=== PATIENT | female | born 1985 | race Caucasian/White ===

== ENCOUNTER 2018-06-19 08:57 | Emergency (ER) | payer OTHER, SELFPAY ==
[2018-06-19 08:58] VITALS: BP 157/102; PULSE 76; RESP 18; TEMP 36.6; O2SAT 100; BMI 38.0
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
[2018-06-19 10:14] VITALS: BP 108/75; PULSE 66; RESP 15; O2SAT 99
--- OUTSIDE RECORDS SUMMARY | 2018-08-23 23:26 | XMS RPT_ITS ---
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 Vitamin D 25 24.4 Hydroxy Result Comment: Classification of 25 [place] Vitamin D status: Insufficiency/Moderate Deficiency: < or = 30 ng/mL Sufficiency/Optimal Levels: 31 to 80 ng/mL Toxicity: > 100 ng/mL Test performed by chemiluminescent immunoassay. Performed By: #### CBC, CMP, LIPB, FREET3, FT4, TSH, VITD #### [facility] [employer] [address] [place], [place] [address] HEMOGLOBIN A1C Collected: 05/23/2018 Status: F Source: [place] 7:54 AM [facility] REPOSITORY TYPE CODE TESTS RESULT OUT OF REFERENCE UNITS RANGE LAB HGBA1C 4.3-5.6 % Hemoglobin A1c 5.1 Result Comment: [place] [employer] guidelines indicate that patients with HgbA1c in the range 5.7-6.4% are at increased risk for development of diabetes, and intervention by lifestyle modification may be beneficial. HgbA1c greater or equal to 6.5% is considered diagnostic of diabetes. LAB HBA0 mg/dL Est. Average Glucose 100 Result Comment: eAG: (Estimated average glucose) is a calculated value from HgbA1c and is teleservices representative of the average blood glucose level in the last 2-3 month period. Performed By: #### HBA1C #### [facility] [employer] [address] [place], [place] [address] PROGRESS Observed: 05/21/2018 Status: COMPLETED Source: [place] 9:14 PM [facility] REPOSITORY HNO ID: [id number] Author: Beni Long Service: (none) Author Type: Physician Type: Progress Notes Filed: 05/21/2018 9:20 PM Note Text: CC: Mady Tracy is a 32 year old female who presents to the office to establish care. HPI: Anxiety, long standing, worse over the last few years but especially since of her son. Has been on Paxil for the last 1-1.5 years, especially since going through a divorce from her , when she found out he was having an affair with another woman when her son was 10 days old. No SI or HI, now is in a better place since she is now moved into a new home and she now has a new stable relationship and is through the divorce. She has noticed weight gain concerns and fatigue over the last 6 months and is concerned of a possible SE from a medication contributing to this cause. No known hx of Hypothyroidism Elevated BLOOD PRESSURE, hx of elevated BLOOD PRESSURE in , no pre eclampsia or eclampsia. Has gained >20 lbs in the last 6 months and thinks this is contributing to her BLOOD PRESSURE, Admits lack of regular exercise and sometimes emotional eating, no CP or dyspnea or dizziness/LH or headaches or edema. PAST MEDICAL HISTORY Diagnosis Date - Anxiety disorder 08/14/2010 - Asthma 03/15/2010 - Breast disorder 2012 RIGHT BREAST MASS - Cyst January 2009 Near urethra that was drained. - Gestational hypertension w/o significant proteinuria in 3rd trimester 03/31/2013 - Other abnormal heart sounds Murmur PAST SURGICAL HISTORY Procedure Laterality Date - BREAST BIOPSY - LAPAROSCOPY, SURGICAL, APPENDECTOMY 10-04-11 - REMOVAL ADENOIDS,PRIMARY,<12 Y/O 01/2007 Adenoidectomy - REMOVAL OF TONSILS,<12 Y/O 01/2007 Tonsillectomy Social History: Social History Substance Use Topics - Smoking status: Never Smoker - Smokeless tobacco: Never Used - Alcohol use Yes Comment: socially, NOT WHILE FAMILY HISTORY Problem Relation Age of Onset - Hypertension Mother - Hypertension Father - Diabetes Maternal Grandmother - Diabetes Maternal Grandfather - Heart Maternal Grandfather - Arthritis Paternal Grandmother - Breast Cancer Paternal Grandmother - Diabetes Maternal Aunt - Diabetes Maternal Aunt - other (PARKINSONS) Maternal Aunt Current Outpatient prescriptions: ethynodiol diacetate-ethinyl estradiol 1 mg-35 mcg (KELNOR , ,) 1-35 mg-mcg per tablet Take 1 tablet by mouth once daily. albuterol HFA (PROAIR HFA) 90 mcg/actuation inhaler Inhale 2 Puffs as instructed every 4 hours as needed. FLUoxetine (PROZAC) 10 mg tablet Take 1 tablet by mouth once daily. Allergies: ALLERGIES Allergen Reactions - Augmentin [Amoxicil* diarrhea - Celexa [Citalopram * Other: See Comments decreased libido, anorgasmia - Z-Pack [Azithromyci* Vomiting ROS: See HPI PE: 05/21/18 1715 05/21/18 1805 BP: 136/92 140/82 Pulse: 64 Resp: 16 Temp: 37.3 ?C (99.1 ?F) TempSrc: Right Tympanic Weight: 96.6 kg (213 lb) Gen: AANDO, NAD, non-toxic appearing, Pleasant, cooperative HEENT: NT/AC, PERRLA, EOMs intact b/l, nares clear and patent b/l, pharynx without erythema, exudate or lesions. Uvula midline. EACs without erythema or debris. TMs pearly willis with intact landmarks b/l. Neck: supple, No cervical LAD, no thyromegaly, no carotid bruits CV: RRR, normal S1 and S2, no murmurs, no gallops, no rubs, Pulses 2+ and symmetric in UE and LE b/l Lungs: normal respiratory effort, CTA b/l, no wheezing or rhonchi or rales Abd: soft, overweight, NT, ND, +BS, no hepatosplenomegaly MS: FROM all 4 extremities Neuro: CN II-XII intact b/l, strength 5/5 b/l UE and LE, DTRs 2/4 UE and LE, sensation intact. Skin: warm, dry, intact, No rashes or lesions on exposed skin. ASSESSMENT/PLAN: 1. Well adult exam - ICD9: V70.0, ICD10: Z00.00 (primary diagnosis) - Encouraged monthly Breast Self Exam - Recommended calcium intake with supplements or by diet (goal of 0479-9329 mg/day - Recommended regular aerobic exercise. - Discussed need and benefit for weight loss. BMI 37.73 kg/(m2) - Check CBC with diff, CMP, TSH, HbA1C, fasting glucose and fasting lipid panel - Follow up for annual exam in one year. - COMP METABOLIC PANEL - CBC - LIPID PANEL BASIC - TSH BLD - T4 FREE/FREE THYROX - T3 FREE BLD - VITAMIN D 25 HYDROXY 2. Need for vaccination - ICD9: V05.9, ICD10: Z23 - INFLUENZA VACCINE QUADRIVALENT AGE 3 YRS PLUS + IM 3. INÉS (generalized anxiety disorder) - ICD9: 300.02, ICD10: F41.1 - concerns that Paxil is causing her SE, would recommend changing to alternative, had SE with Celexa in the past, follow up in office in 1-2 months and prn - FLUOXETINE 10 MG TABLET 4. Obesity, Class II, BMI 35-39.9 - ICD9: 278.00, ICD10: E66.9 - Lengthy discussion in office today regarding diet and exercise. Discussed use of small plate to eat meals from, drink 1 glass of water 10-15 minutes prior to eating meal, drink 8 glasses of water daily, eat fresh fruit and vegetable during meal first then lean protein such as grilled/baked chicken breast or fish, limit carbohydrate intake (less pasta, breads, rice and snack foods) as well as limiting sugars (desserts etc). Important to count / track your calories and exercise as well. Beni Long DO To ER if develops chest pain, shortness of breath, or severe worsening of symptoms. Discussed risks, benefits, alternatives, and potential side effects of medications. Patient expressed understanding and agreed with the plan. Beni Long DO [address] [place] [address] CNOV Observed: 05/21/2018 Status: COMPLETED Source: [place] 5:20 PM [facility] REPOSITORY Office Visit (FAMPWS) MADY TRACY ([id number]) 1985 F Date Time Provider Department 05/21/18 5:20 PM [facility] During your visit today, we recorded the following information about you: Temperature Pulse Respiration Blood pressure 99.1 degrees 64/minute 16/minute 140/82 Weight Last Period 96.6 kg 05/07/18 Donna Kimble LPN 05/21/2018 9:20 PM Signed 32 year old female here for INACTIVATED INFLUENZA VACCINE. 6130-8506 Season Patient is identified by name and date of : Yes [] CONTRAINDICATIONS color enhanced section Age less than 6 months? No Allergy to eggs, chicken, chicken feathers, or chicken dander? No Allergy to thimerosal (a preservative) or formaldehyde, gelatin? No History of severe reaction to any vaccine component or a previous dose of influenza vaccination? No History of Guillain-Warren Syndrome within 6 weeks after a previous influenza vaccine? No Patient is not moderately or severely ill? No Current temperature greater or equal to 100.4F? No History of Bone Marrow Transplant prior 6 months or solid organ transplant in the past 3 months ? No History of fainting after a prior injection or medical procedure? No- ? If patient has fainted in the past, the CDC recommends sitting or lying down for 15 minutes after the vaccination. [] VERIFICATION color enhanced section Was the answer Yes for any of the above contraindications? No contraindications present. Acceptable to proceed with vaccine. Patient/guardian agrees the above answers are true to the best of their knowledge? Yes Flu vaccine information sheet given? Yes See immunization activity in [facility] for details of immunizations adminstered today. Patient age: [age] year old For The 3451-0261 Flu Season 6-35 months old: Fluzone 0.25 ml - IM (Preservative Free) 3 years of age: Fluzone 0.5 ml - IM (Preservative Free) 3 years and older: Fluzone 0.5 ml- IM-(with Preservatives) 65+ years old: 2-49 years old Fluzone High-Dose 0.5 ml - IM (Preservative Free) FLUMIST- intranasal REMEMBER: If patient is less than 9 years of age and this is the first vaccine of Influenza to be received in any flu season, they should receive a second dose in one months time. Beni Long, 05/21/2018 6:00 PM Signed Vitamin D3 2,000 IU a day with food - [employer], [employer] P8 - once a day at bedtime, not with food, [place] [place] [facility], refrigerated ?Multivitamin ?B complex- if need energy, once a day morning Goal blood pressure is 110-130s/60-80s (back to goal of 120/80) Beni Long DO 05/21/2018 9:20 PM Signed CC: Mady Tracy is a 32 year old female who presents to the office to establish care. HPI: Anxiety, long standing, worse over the last few years but especially since of her son. Has been on Paxil for the last 1-1.5 years, especially since going through a divorce from her , when she found out he was having an affair with another woman when her son was 10 days old. No SI or HI, now is in a better place since she is now moved into a new home and she now has a new stable relationship and is through the divorce. She has noticed weight gain concerns and fatigue over the last 6 months and is concerned of a possible SE from a medication contributing to this cause. No known hx of Hypothyroidism Elevated BLOOD PRESSURE, hx of elevated BLOOD PRESSURE in , no pre eclampsia or eclampsia. Has gained >20 lbs in the last 6 months and thinks this is contributing to her BLOOD PRESSURE, Admits lack of regular exercise and sometimes emotional eating, no CP or dyspnea or dizziness/LH or headaches or edema. PAST MEDICAL HISTORY Diagnosis Date - Anxiety disorder 08/14/2010 - Asthma 03/15/2010 - Breast disorder 2012 RIGHT BREAST MASS - Cyst January 2009 Near urethra that was drained. - Gestational hypertension w/o significant proteinuria in 3rd trimester 03/31/2013 - Other abnormal heart sounds Murmur PAST SURGICAL HISTORY Procedure Laterality Date - BREAST BIOPSY - LAPAROSCOPY, SURGICAL, APPENDECTOMY --12 - REMOVAL ADENOIDS,PRIMARY,<12 Y/O 01/2007 Adenoidectomy - REMOVAL OF TONSILS,<12 Y/O 01/2007 Tonsillectomy Social History: Social History Substance Use Topics - Smoking status: Never Smoker - Smokeless tobacco: Never Used - Alcohol use Yes Comment: socially, NOT WHILE FAMILY HISTORY Problem Relation Age of Onset - Hypertension Mother - Hypertension Father - Diabetes Maternal Grandmother - Diabetes Maternal Grandfather - Heart Maternal Grandfather - Arthritis Paternal Grandmother - Breast Cancer Paternal Grandmother - Diabetes Maternal Aunt - Diabetes Maternal Aunt - other (PARKINSONS) Maternal Aunt Current Outpatient prescriptions: ethynodiol diacetate-ethinyl estradiol 1 mg-35 mcg (KELNOR , 28,) 1-35 mg-mcg per tablet Take 1 tablet by mouth once daily. albuterol HFA (PROAIR HFA) 90 mcg/actuation inhaler Inhale 2 Puffs as instructed every 4 hours as needed. FLUoxetine (PROZAC) 10 mg tablet Take 1 tablet by mouth once daily. Allergies: ALLERGIES Allergen Reactions - Augmentin [Amoxicil* diarrhea - Celexa [Citalopram * Other: See Comments decreased libido, anorgasmia - Z-Pack [Azithromyci* Vomiting ROS: See HPI PE: 05/21/18 1715 05/21/18 1805 BP: 136/92 140/82 Pulse: 64 Resp: 16 Temp: 37.3 ?C (99.1 ?F) TempSrc: Right Tympanic Weight: 96.6 kg (213 lb) Gen: AANDO, NAD, non-toxic appearing, Pleasant, cooperative HEENT: NT/AC, PERRLA, EOMs intact b/l, nares clear and patent b/l, pharynx without erythema, exudate or lesions. Uvula midline. EACs without erythema or debris. TMs pearly willis with intact landmarks b/l. Neck: supple, No cervical LAD, no thyromegaly, no carotid bruits CV: RRR, normal S1 and S2, no murmurs, no gallops, no rubs, Pulses 2+ and symmetric in UE and LE b/l Lungs: normal respiratory effort, CTA b/l, no wheezing or rhonchi or rales Abd: soft, overweight, NT, ND, +BS, no hepatosplenomegaly MS: FROM all 4 extremities Neuro: CN II-XII intact b/l, strength 5/5 b/l UE and LE, DTRs 2/4 UE and LE, sensation intact. Skin: warm, dry, intact, No rashes or lesions on exposed skin. ASSESSMENT/PLAN: 1. Well adult exam - ICD9: V70.0, ICD10: Z00.00 (primary diagnosis) - Encouraged monthly Breast Self Exam - Recommended calcium intake with supplements or by diet (goal of 7477-7632 mg/day - Recommended regular aerobic exercise. - Discussed need and benefit for weight loss. BMI 37.73 kg/(m2) - Check CBC with diff, CMP, TSH, HbA1C, fasting glucose and fasting lipid panel - Follow up for annual exam in one year. - COMP METABOLIC PANEL - CBC - LIPID PANEL BASIC - TSH BLD - T4 FREE/FREE THYROX - T3 FREE BLD - VITAMIN D 25 HYDROXY 2. Need for vaccination - ICD9: V05.9, ICD10: Z23 - INFLUENZA VACCINE QUADRIVALENT AGE 3 YRS PLUS + IM 3. INÉS (generalized anxiety disorder) - ICD9: 300.02, ICD10: F41.1 - concerns that Paxil is causing her SE, would recommend changing to alternative, had SE with Celexa in the past, follow up in office in 1-2 months and prn - FLUOXETINE 10 MG TABLET 4. Obesity, Class II, BMI 35-39.9 - ICD9: 278.00, ICD10: E66.9 - Lengthy discussion in office today regarding diet and exercise. Discussed use of small plate to eat meals from, drink 1 glass of water 10- 15 minutes prior to eating meal, drink 8 glasses of water daily, eat fresh fruit and vegetable during meal first then lean protein such as grilled/baked chicken breast or fish, limit carbohydrate intake (less pasta, breads, rice and snack foods) as well as limiting sugars (desserts etc). Important to count / track your calories and exercise as well. Beni Long DO To ER if develops chest pain, shortness of breath, or severe worsening of symptoms. Discussed risks, benefits, alternatives, and potential side effects of medications. Patient expressed understanding and agreed with the plan. Beni Long DO [address] [place] [address] Referring Provider: SELF [200] Allergies As of Date: 05/21/2018 Noted Allergy Reaction AUGMENTIN (AMOXICILLIN-POT CLAVUL*04/23/2005 Comments: diarrhea CELEXA (CITALOPRAM HYDROBROMIDE) 09/04/2010 14 - Other: See Comments Comments: decreased libido, anorgasmia Z-PACK (AZITHROMYCIN) 10/03/2006 11 - Vomiting Date Reviewed: 05/21/2018 Reviewed by: Donna Kimble LPN - Fully Assessed Reason for Visit: Establish Care [42] Imm/Inj [58] Cmt: Flu Vaccine Reason For Visit History Recorded Primary Visit Diagnosis:Well adult exam [Z00.00] Other Visit Diagnoses:Need for vaccination [Z23] INÉS (generalized anxiety disorder) [F41.1] Obesity, Class II, BMI 35-39.9 [E66.9] Fatigue, unspecified type [R53.83] Order(s):INFLUENZA VACCINE QUADRIVALENT AGE 3 YRS PLUS + IM [[id number]] Order #: [id number] COMP METABOLIC PANEL [SQCMP] Order #: [id number] FUTURE CBC [SQCBC] Order #: [id number] FUTURE LIPID PANEL BASIC [SQLIPB] Order #: [id number] FUTURE TSH BLD [SQTSH] Order #: [id number] FUTURE T4 FREE/FREE THYROX [SQFT4] Order #: [id number] FUTURE T3 FREE BLD [SQFREET3] Order #: [id number] FUTURE VITAMIN D 25 HYDROXY [SQVITD] Order #: [id number] FUTURE FLUoxetine (PROZAC) 10 mg tabletTake 1 tablet by mouth once daily.Disp: 30 tabletRfl: 3 Prescriptions as of 05/21/2018 Sig: ETHYNODIOL DIAC-ETH ESTRADIOL* Take 1 tablet by mouth once d* FLUOXETINE 10 MG TABLET Take 1 tablet by mouth once d* ALBUTEROL SULFATE HFA 90 MCG/* Inhale 2 Puffs as instructed * Problem List As Of Date 05/21/2018 Noted Resolved Acute pharyngitis [J02.9] INVALID FOR*01/12/2016 DYSMETABOLIC SYNDROME X [E88.81] INVALID FOR* Other acne [L70.8] INVALID FOR*01/12/2016 Scar condition and fibrosis of skin [L90.5] INVALID FOR*12/12/2012 Esophageal reflux [K21.9] INVALID FOR*12/12/2012 Contact dermatitis and other eczema, due to uns*INVALID FOR*12/12/2012 XEROSIS///SEBACEOUS GLAND DIS NEC [L73.8] INVALID FOR*12/12/2012 Other seborrheic keratosis [L82.1] INVALID FOR*12/12/2012 Dyshidrosis [L30.1] INVALID FOR*01/12/2016 Asthma [J45.909] INVALID FOR*10/03/2015 More... Anxiety disorder [F41.9] INVALID FOR*10/03/2015 More... Chronic appendicitis [K36] INVALID FOR*12/12/2012 History of breast biopsy [Z98.890] INVALID FOR*05/29/2013 More... Heart murmur [R01.1] INVALID FOR*10/03/2015 More... Patient requested diagnostic testing [Z01.89] INVALID FOR*12/12/2012 More... Immunization due [Z23] INVALID FOR*03/11/2013 More... Supervision of normal first [Z34.00] INVALID FOR*05/29/2013 Gestational hypertension w/o significant protei*INVALID FOR*05/29/2013 History of asthma [Z87.09] INVALID FOR* More... History of heart murmur in childhood [Z86.79] INVALID FOR* More... History of depression [Z86.59] INVALID FOR* More... History of gestational hypertension [Z87.59] INVALID FOR*06/28/2016 More... History of maternal third degree perineal lacer*INVALID FOR*06/28/2016 More... Obesity, Class II, BMI 35-39.9 [E66.9] INVALID FOR* INÉS (generalized anxiety disorder) [F41.1] INVALID FOR* Well adult exam [Z00.00] INVALID FOR* Other instructions from your clinician: Vitamin D3 2,000 IU a day with food - [employer], [employer] P[employer] - once a day at bedtime, not with food, [employer] [facility], refrigerated ?Multivitamin ?B complex- if need energy, once a day morning Goal blood pressure is 110-130s/60-80s (back to goal of 120/80) Prescriptions ordered this encounter Disp Refills Start End FLUOXETINE 10 MG TABLET 30 t* 3 05/21/2018 Route: ORAL Sig: Take 1 tablet by mouth once daily. Medications Discontinued During This Encounter PARoxetine (PAXIL) 10 mg tablet 90 t* 3 11/04/2017 05/21/2018 Route: ORAL Sig: Take 1 tablet by mouth once daily. Disc: Reason for discontinue is not on file. Follow-up and Disposition History Recorded Encounter Status:Closed by BENI LONG DO on 05/21/18 PROGRESS Observed: 05/21/2018 Status: COMPLETED Source: [place] 5:18 PM [facility] REPOSITORY HNO ID: [id number] Author: Donna Kimble LPN Service: (none) Author Type: (none) Type: Progress Notes Filed: 05/21/2018 9:20 PM Note Text: 32 year old female here for INACTIVATED INFLUENZA VACCINE. 2116-4306 Season Patient is identified by name and date of : Yes [] CONTRAINDICATIONS color enhanced section Age less than 6 months? No Allergy to eggs, chicken, chicken feathers, or chicken dander? No Allergy to thimerosal (a preservative) or formaldehyde, gelatin? No History of severe reaction to any vaccine component or a previous dose of influenza vaccination? No History of Guillain-Warren Syndrome within 6 weeks after a previous influenza vaccine? No Patient is not moderately or severely ill? No Current temperature greater or equal to 100.4F? No History of Bone Marrow Transplant prior 6 months or solid organ transplant in the past 3 months ? No History of fainting after a prior injection or medical procedure? No- ? If patient has fainted in the past, the CDC recommends sitting or lying down for 15 minutes after the vaccination. [] VERIFICATION color enhanced section Was the answer Yes for any of the above contraindications? No contraindications present. Acceptable to proceed with vaccine. Patient/guardian agrees the above answers are true to the best of their knowledge? Yes Flu vaccine information sheet given? Yes See immunization activity in [facility] for details of immunizations adminstered today. Patient age: [age] year old For The 8216-5860 Flu Season 6-35 months old: Fluzone 0.25 ml - IM (Preservative Free) 3 years of age: Fluzone 0.5 ml - IM (Preservative Free) 3 years and older: Fluzone 0.5 ml- IM-(with Preservatives) 65+ years old: 2-49 years old Fluzone High-Dose 0.5 ml - IM (Preservative Free) FLUMIST- intranasal REMEMBER: If patient is less than 9 years of age and this is the first vaccine of Influenza to be received in any flu season, they should receive a second dose in one months time. CNPTOUTREAALEXANDER Observed: 05/06/2018 Status: COMPLETED Source: [place] 12:00 AM [facility] REPOSITORY Patient Outreach (INT[facility]) MADY TRACY ([id number]) 1985 F Date Time Provider Department 05/06/18 [facility] LIU [facility] During your visit today, we recorded the following information about you: Allergies As of Date: 05/06/2018 Noted Allergy Reaction AUGMENTIN (AMOXICILLIN-POT CLAVUL*04/23/2005 Comments: diarrhea CELEXA (CITALOPRAM HYDROBROMIDE) 09/04/2010 14 - Other: See Comments Comments: decreased libido, anorgasmia Z-PACK (AZITHROMYCIN) 10/03/2006 11 - Vomiting Date Reviewed: 11/04/2017 Reviewed by: Kaci Guerrero Ma - Fully Assessed Visit Diagnosis:Medication management [Z79.899] Order(s):HGB A1C [[id number]] Order #: [id number] FUTURE Prescriptions as of 05/06/2018 Sig: ALBUTEROL SULFATE HFA 90 MCG/* Inhale 2 Puffs as instructed * ETHYNODIOL DIAC-ETH ESTRADIOL* Take 1 tablet by mouth once d* X PAROXETINE 10 MG TABLET Take 1 tablet by mouth once d* Problem List As Of Date 05/06/2018 Noted Resolved Acute pharyngitis [J02.9] INVALID FOR*01/12/2016 DYSMETABOLIC SYNDROME X [E88.81] INVALID FOR* Other acne [L70.8] INVALID FOR*01/12/2016 Scar condition and fibrosis of skin [L90.5] INVALID FOR*12/12/2012 Esophageal reflux [K21.9] INVALID FOR*12/12/2012 Contact dermatitis and other eczema, due to uns*INVALID FOR*12/12/2012 XEROSIS///SEBACEOUS GLAND DIS NEC [L73.8] INVALID FOR*12/12/2012 Other seborrheic keratosis [L82.1] INVALID FOR*12/12/2012 Dyshidrosis [L30.1] INVALID FOR*01/12/2016 Asthma [J45.909] INVALID FOR*10/03/2015 More... Anxiety disorder [F41.9] INVALID FOR*10/03/2015 More... Chronic appendicitis [K36] INVALID FOR*12/12/2012 History of breast biopsy [Z98.890] INVALID FOR*05/29/2013 More... Heart murmur [R01.1] INVALID FOR*10/03/2015 More... Patient requested diagnostic testing [Z01.89] INVALID FOR*12/12/2012 More... Immunization due [Z23] INVALID FOR*03/11/2013 More... Supervision of normal first [Z34.00] INVALID FOR*05/29/2013 Gestational hypertension w/o significant protei*INVALID FOR*05/29/2013 History of asthma [Z87.09] INVALID FOR* More... History of heart murmur in childhood [Z86.79] INVALID FOR* More... History of depression [Z86.59] INVALID FOR* More... History of gestational hypertension [Z87.59] INVALID FOR*06/28/2016 More... History of maternal third degree perineal lacer*INVALID FOR*06/28/2016 More... Encounter Status:Closed by Sensser Moxe HealthYESSI on 05/29/18 PROGRESS Observed: 11/11/2017 Status: COMPLETED Source: [place] 8:26 AM [facility] [place] REPOSITORY HNO ID: [id number] Author: Bertha Fine Psr Service: (none) Author Type: (none) Type: Progress Notes Filed: 11/11/2017 8:26 AM Note Text: pap logged, letter sent. Bertha Fine Psr PROGRESS Observed: 11/08/2017 Status: COMPLETED Source: [place] 9:39 AM [facility] REPOSITORY HNO ID: [id number] Author: Bertha Fine Psr Service: (none) Author Type: (none) Type: Progress Notes Filed: 11/08/2017 9:39 AM Note Text: pap logged, letter sent. Bertha Fine Psr HPV W/GENOTYPE Collected: 11/04/2017 Status: F Source: [place] 9:33 AM [facility] REPOSITORY TYPE CODE TESTS RESULT OUT OF REFERENCE UNITS RANGE LAB HPVT16 HPV HighRisk Negative for Type 16 HPV DNA high risk type 16 by PCR. LAB HPVT18 HPV HighRisk Negative for Type 18 HPV DNA high risk type 18 by PCR. LAB HPVHRO HPV HighRisk Negative for Other HPV DNA high risk types: 31,33,35,39,45 ,51,52,56,58,5 9,66,68 by PCR. Result Comment: This test was developed and its performance characteristics determined by [facility]'s [facility] [place] ([facility]). It has not been cleared or approved by the FDA. [facility] is regulated under CLIA as qualified to perform high-complexity testing. This test is used for clinical purposes. It should not be regarded as inv estigational or for research. Performed By: #### HPVHRR #### [facility] [address], [place] [address] CYTOLOGY Observed: 11/04/2017 Status: C Source: [place] 9:33 AM [facility] REPOSITORY ADDITIONAL PROCEDURES PRESENT Specimen originated from [facility] Specimen #: [id number] Submitting Physician: BJ REARDON M.D. ([id number]) SPECIMEN SUBMITTED A: CERVICAL, SCREENING, FLUID FINAL DIAGNOSIS A. CERVICAL, SCREENING, FLUID Satisfactory for interpretation. No endocervical component. Negative for intraepithelial lesion or malignancy. This specimen has been analyzed by the ThinPrep Imaging System, an automated imaging and review system, which assists the laboratory in evaluating cells on ThinPrep Pap tests. Following automated imaging, selected pérez from every slide are reviewed by a regional sales coordinator. SARA Fung(ASCP) (Electronic Signature) ADDITIONAL PROCEDURE(S) HUMAN PAPILLOMA VIRUS Date Ordered: 11/05/2017 Date Reported: 11/06/2017 Procedure Results and Interpretation Negative for HPV DNA high risk type 16 by PCR. Negative for HPV DNA high risk type 18 by PCR. Negative for HPV DNA high risk types: 31,33,35,39,45,51,52,56,58,59,66,68 by PCR. This test was developed and its performance characteristics determined by [facility]'s [facility] [place] ([facility]). It has not been cleared or approved by the FDA. -[facility] is regulated under CLIA as qualified to perform high-complexity testing. This test is used for clinical purposes. It should not be regarded as investigational or for research. CLINICAL DATA ROUTINE EXAM, HPV Testing: Yes, automatic HPV patients over 30 Date of Last Menstrual Period: 10/23/2017 STAINS A: CERVICAL, SCREENING, FLUID THIN PREP NETWORK PROGRAMMER Sylvie Sorensen M.D., Social Insurance Adviser Date of Report: 11/07/2017 Date of Procedure: 11/04/2017 Date of Receipt: 11/05/2017 Submitted by: BJ REARDON M.D. ([id number]) Location: [facility] Diagnostic interpretation performed at [facility], [address] [facility] [address]. The Pap Smear is a screening test for cervical cancer. False negative results occur with all screening tests, emphasizing the need for rescreening at recommended intervals, and clinical correlation. PROGRESS Observed: 11/04/2017 Status: COMPLETED Source: [place] 9:20 AM [facility] RE[facility] HNO ID: [id number] Author: Bj Reardon Service: (none) Author Type: Physician Type: Progress Notes Filed: 11/04/2017 9:35 AM Note Text: Mady Tracy is a 32 year old who presents for her annual gynecologic exam without complaints. Menses: cycles every 28 days and 2-3 days of light flow. Contraception: oral contraceptives HPV vaccine: No Last Pap: 2012 normal HPV: N/A History of abnormal pap: No Last mammogram: never Sexually active: Yes Obstetric History T2 L2 SAB0 TAB0 Ectopic0 Multiple0 Live Births2 PAST MEDICAL HISTORY Diagnosis Date - Anxiety disorder 08/14/2010 - Asthma 03/15/2010 - Breast disorder 2012 RIGHT BREAST MASS - Cyst January 2009 Near urethra that was drained. - Gestational hypertension w/o significant proteinuria in 3rd trimester 03/31/2013 - Other abnormal heart sounds Murmur PAST SURGICAL HISTORY Procedure Laterality Date - BREAST BIOPSY - LAPAROSCOPY, SURGICAL, APPENDECTOMY 10-04-11 - REMOVAL ADENOIDS,PRIMARY,<12 Y/O 01/2007 Adenoidectomy - REMOVAL OF TONSILS,<12 Y/O 01/2007 Tonsillectomy FAMILY HISTORY Problem Relation Age of Onset - Hypertension Mother - Hypertension Father - Diabetes Maternal Grandmother - Diabetes Maternal Grandfather - Heart Maternal Grandfather - Arthritis Paternal Grandmother - Breast Cancer Paternal Grandmother - Diabetes Maternal Aunt - Diabetes Maternal Aunt - PARKINSONS [OTHER] Maternal Aunt SOCIAL HISTORY Social History Substance Use Topics - Smoking status: Never Smoker - Smokeless tobacco: Never Used - Alcohol use Yes Comment: socially, NOT WHILE REVIEW OF SYSTEMS Abdomen: No abdominal pain, nausea, vomiting, diarrhea, or constipation. No bloating, early satiety, indigestion, or increased flatulence. Bladder: No dysuria, gross hematuria, urinary frequency, urinary urgency, or incontinence. Breast: No breast lumps, nipple d/c, overlying skin changes, redness or skin retraction. Allergies and current medication updated:Yes EXAM: Ht 5' 3 (1.60m) Wt 202 lb (91.6kg) LMP 10/23/2017 BMI 35.79 kg/(m2). GENERAL: pleasant, female in no apparent distress HEENT: Normocephalic, atraumatic, mucus membranes moist and no lesions NECK: Supple, full range of motion, no adenopathy and thyroid normal DERMATOLOGY: Normal, without lesions, non-icteric and non-hirsute BREAST: soft, non-tender, symmetric, no dominant mass, normal nipple-areolar complex, no lymphadenopathy, no nipple discharge and dense breasts CHEST: Normal inspiratory effort ABDOMEN: soft, non-tender and no masses PELVIC: external genitalia normal, normal Bartholin's glands, urethra, Arbuckle's glands, no vulvar lesions, no cervical lesions, good vaginal support, physiologic discharge present, normal appearing perineal body and perianal region BIMANUAL: uterus normal size, shape and consistency, no adnexal masses and non-tender RECTOVAGINAL: deferred. NEURO: alert and oriented x3,exam grossly non-focal EXTREMITIES: normal ASSESSMENT/PLAN: 1) Health maintenance: Pap done with HPV. 2) Contraception: oral contraceptives . Contraceptive options reviewed and information provided. 3) STD screening: Declined STD check. 4) Follow up one year or sooner as needed Bj Reardon MD CNOV Observed: 11/04/2017 Status: COMPLETED Source: [place] 9:00 AM [facility] REPOSITORY Office Visit (WOOB) MADY TRACY ([id number]) 1985 F Date Time Provider Department 11/04/17 9:00 AM BJ REARDON During your visit today, we recorded the following information about you: Blood pressure Weight Height Last Period 132/84 91.6 kg 1.6 m 10/23/17 Bj Reardon MD 11/04/2017 9:35 AM Signed Mady Tracy is a 32 year old who presents for her annual gynecologic exam without complaints. Menses: cycles every 28 days and 2-3 days of light flow. Contraception: oral contraceptives HPV vaccine: No Last Pap: 2012 normal HPV: N/A History of abnormal pap: No Last mammogram: never Sexually active: Yes Obstetric History T2 L2 SAB0 TAB0 Ectopic0 Multiple0 Live Births2 PAST MEDICAL HISTORY Diagnosis Date - Anxiety disorder 08/14/2010 - Asthma 03/15/2010 - Breast disorder 2012 RIGHT BREAST MASS - Cyst January 2009 Near urethra that was drained. - Gestational hypertension w/o significant proteinuria in 3rd trimester 03/31/2013 - Other abnormal heart sounds Murmur PAST SURGICAL HISTORY Procedure Laterality Date - BREAST BIOPSY - LAPAROSCOPY, SURGICAL, APPENDECTOMY 10-04-11 - REMOVAL ADENOIDS,PRIMARY,<12 Y/O 01/2007 Adenoidectomy - REMOVAL OF TONSILS,<12 Y/O 01/2007 Tonsillectomy FAMILY HISTORY Problem Relation Age of Onset - Hypertension Mother - Hypertension Father - Diabetes Maternal Grandmother - Diabetes Maternal Grandfather - Heart Maternal Grandfather - Arthritis Paternal Grandmother - Breast Cancer Paternal Grandmother - Diabetes Maternal Aunt - Diabetes Maternal Aunt - PARKINSONS [OTHER] Maternal Aunt SOCIAL HISTORY Social History Substance Use Topics - Smoking status: Never Smoker - Smokeless tobacco: Never Used - Alcohol use Yes Comment: socially, NOT WHILE REVIEW OF SYSTEMS Abdomen: No abdominal pain, nausea, vomiting, diarrhea, or constipation. No bloating, early satiety, indigestion, or increased flatulence. Bladder: No dysuria, gross hematuria, urinary frequency, urinary urgency, or incontinence. Breast: No breast lumps, nipple d/c, overlying skin changes, redness or skin retraction. Allergies and current medication updated:Yes EXAM: Ht 5' 3 (1.60m) Wt 202 lb (91.6kg) LMP 10/23/2017 BMI 35.79 kg/(m2). GENERAL: pleasant, female in no apparent distress HEENT: Normocephalic, atraumatic, mucus membranes moist and no lesions NECK: Supple, full range of motion, no adenopathy and thyroid normal DERMATOLOGY: Normal, without lesions, non-icteric and non-hirsute BREAST: soft, non-tender, symmetric, no dominant mass, normal nipple-areolar complex, no lymphadenopathy, no nipple discharge and dense breasts CHEST: Normal inspiratory effort ABDOMEN: soft, non-tender and no masses PELVIC: external genitalia normal, normal Bartholin's glands, urethra, Arbuckle's glands, no vulvar lesions, no cervical lesions, good vaginal support, physiologic discharge present, normal appearing perineal body and perianal region BIMANUAL: uterus normal size, shape and consistency, no adnexal masses and non-tender RECTOVAGINAL: deferred. NEURO: alert and oriented x3,exam grossly non-focal EXTREMITIES: normal ASSESSMENT/PLAN: 1) Health maintenance: Pap done with HPV. 2) Contraception: oral contraceptives . Contraceptive options reviewed and information provided. 3) STD screening: Declined STD check. 4) Follow up one year or sooner as needed MD Bertha Vargas Psr 11/08/2017 9:39 AM Signed pap logged, letter sent. Bertha Fine Psr Bertha Fine Psr 11/11/2017 8:26 AM Signed pap logged, letter sent. Bertha Fine Psr Referring Provider: SELF [[id number]] Allergies As of Date: 11/04/2017 Noted Allergy Reaction AUGMENTIN (AMOXICILLIN-POT CLAVUL*04/23/2005 Comments: diarrhea CELEXA (CITALOPRAM HYDROBROMIDE) 09/04/2010 14 - Other: See Comments Comments: decreased libido, anorgasmia Z-PACK (AZITHROMYCIN) 10/03/2006 11 - Vomiting Date Reviewed: 11/04/2017 Reviewed by: Kaci Guerrero Ma - Fully Assessed Reason for Visit: Yearly Exam [187] Visit Diagnoses:History of depression [Z86.59] Encounter for gynecological examination (general) (routine) without abnormal findings [Z01.419] Screening for cervical cancer [Z12.4] Encounter for screening for human papillomavirus (HPV) [Z11.51] Order(s):PAP FLUID CERVICAL SCREENING [[id number]] Order #: [id number]. #:[id number] ethynodiol diacetate-ethinyl estradiol 1 mg-35 mcg (KELNOR 1/35, 28,) 1-35 mg-mcg per tabletTake 1 tablet by mouth once daily.Disp: 3 PackageRfl: 3 PARoxetine (PAXIL) 10 mg tabletTake 1 tablet by mouth once daily.Disp: 90 tabletRfl: 3 HPV W/GENOTYPE [SQHPVHRR] Order #: [id number]. #:[id number] Prescriptions as of 11/04/2017 Sig: ETHYNODIOL DIAC-ETH ESTRADIOL* Take 1 tablet by mouth once d* PAROXETINE 10 MG TABLET Take 1 tablet by mouth once d* ALBUTEROL SULFATE HFA 90 MCG/* Inhale 2 Puffs as instructed * Patient not taking: Reported on 11/04/2017 Problem List As Of Date 11/04/2017 Noted Resolved Acute pharyngitis [J02.9] INVALID FOR*01/12/2016 DYSMETABOLIC SYNDROME X [E88.81] INVALID FOR* Other acne [L70.8] INVALID FOR*01/12/2016 Scar condition and fibrosis of skin [L90.5] INVALID FOR*12/12/2012 Esophageal reflux [K21.9] INVALID FOR*12/12/2012 Contact dermatitis and other eczema, due to uns*INVALID FOR*12/12/2012 XEROSIS///SEBACEOUS GLAND DIS NEC [L73.8] INVALID FOR*12/12/2012 Other seborrheic keratosis [L82.1] INVALID FOR*12/12/2012 Dyshidrosis [L30.1] INVALID FOR*01/12/2016 Asthma [J45.909] INVALID FOR*10/03/2015 More... Anxiety disorder [F41.9] INVALID FOR*10/03/2015 More... Chronic appendicitis [K36] INVALID FOR*12/12/2012 History of breast biopsy [Z98.890] INVALID FOR*05/29/2013 More... Heart murmur [R01.1] INVALID FOR*10/03/2015 More... Patient requested diagnostic testing [Z01.89] INVALID FOR*12/12/2012 More... Immunization due [Z23] INVALID FOR*03/11/2013 More... Supervision of normal first [Z34.00] INVALID FOR*05/29/2013 Gestational hypertension w/o significant protei*INVALID FOR*05/29/2013 History of asthma [Z87.09] INVALID FOR* More... History of heart murmur in childhood [Z86.79] INVALID FOR* More... History of depression [Z86.59] INVALID FOR* More... History of gestational hypertension [Z87.59] INVALID FOR*06/28/2016 More... History of maternal third degree perineal lacer*INVALID FOR*06/28/2016 More... Prescriptions ordered this encounter Disp Refills Start End ETHYNODIOL DIAC-ETH ESTRADIOL 1 MG-3* 3 Pa* 3 11/04/2017 Route: ORAL Sig: Take 1 tablet by mouth once daily. PAROXETINE 10 MG TABLET 90 t* 3 11/04/2017 Route: ORAL Sig: Take 1 tablet by mouth once daily. Medications Discontinued During This Encounter ethynodiol diacetate-ethinyl estradi* 3 Pa* 3 05/28/2017 11/04/2017 Route: ORAL Sig: Take 1 tablet by mouth once daily. Disc: Reason for discontinue is not on file. PARoxetine (PAXIL) 10 mg tablet 90 t* 3 05/28/2017 11/04/2017 Route: ORAL Sig: Take 1 tablet by mouth once daily. Disc: Reason for discontinue is not on file. Disposition: Return in 1 year (on 11/04/2018) for Annual Exam. Follow-up and Disposition History Recorded Letter Text Bj Reardon M.D. [facility] [address] [place] [id number] [facility] [address] 11/08/2017 [facility]: [id number] Dear Mady, We are pleased to inform you that your recent Pap Test was within normal limits. Because Pap tests are so effective in the early detection of cervical cancer, you are encouraged to continue having the test at regular intervals. You will be due for a 1 year Gynecological Exam after this date 11/04/2018. If you have any questions regarding the above information, do not hesitate to call our office at between the hours of 8:00 a.m. and 5:00 p.m. Sincerely, Bj Reardon M.D. Letter Text Bj Reardon M.D. [facility] [address] [place], [place] [address] [address] [place] [address] 11/11/2017 [facility]: [id number] Dear Mady, We are pleased to inform you that your recent Pap Test was within normal limits. Because Pap tests are so effective in the early detection of cervical cancer, you are encouraged to continue having the test at regular intervals. You will be due for a 1 year Gynecological Exam after this date 11/04/2018. If you have any questions regarding the above information, do not hesitate to call our office at between the hours of 8:00 a.m. and 5:00 p.m. Sincerely, Bj Reardon M.D. Encounter Status:Closed by BJ REARDON MD on 11/04/17 PROGRESS Observed: 09/13/2017 Status: COMPLETED Source: [place] 5:53 PM [facility] [place] REPOSITORY HNO ID: [id number] Author: Mayra Chester (Busetr Purcell Service: (none) Author Type: Nurse Practitioner Type: Progress Notes Filed: 09/13/2017 6:06 PM Note Text: Subjective HPI Patient presents with: Cough and Chest Congestion x 5 days Hx of asthma and bronchitis. Mucinex otc with minimal relief. Review of Systems Constitutional: Positive for chills, fever (started today) and malaise/fatigue. HENT: Positive for congestion. Negative for ear pain and sore throat. Eyes: Negative for discharge and redness. Respiratory: Positive for cough (chest tightness). Negative for hemoptysis, sputum production, shortness of breath and wheezing. Gastrointestinal: Negative for abdominal pain, diarrhea, nausea and vomiting. Skin: Negative for rash. Neurological: Negative for headaches. PAST MEDICAL HISTORY Diagnosis Date - Anxiety disorder 08/14/2010 - Asthma 03/15/2010 - Breast disorder 2012 RIGHT BREAST MASS - Cyst January 2009 Near urethra that was drained. - Gestational hypertension w/o significant proteinuria in 3rd trimester 03/31/2013 - Other abnormal heart sounds Murmur PAST SURGICAL HISTORY Procedure Laterality Date - BREAST BIOPSY - LAPAROSCOPY, SURGICAL, APPENDECTOMY 10-03-12 - REMOVAL ADENOIDS,PRIMARY,<12 Y/O 01/2007 Adenoidectomy - REMOVAL OF TONSILS,<12 Y/O 01/2007 Tonsillectomy ALLERGIES Augmentin [Amoxicillin-Pot Clavulanate]; Celexa [Citalopram Hydrobromide]; Z-Pack [Azithromycin] MEDICATIONS PARoxetine (PAXIL) 10 mg tablet Take 1 tablet by mouth once daily. ethynodiol diacetate-ethinyl estradiol 1 mg-35 mcg (KELNOR , 28,) 1-35 mg-mcg per tablet Take 1 tablet by mouth once daily. FAMILY HISTORY Problem Relation Age of Onset - Hypertension Mother - Hypertension Father - Diabetes Maternal Grandmother - Diabetes Maternal Grandfather - Heart Maternal Grandfather - Arthritis Paternal Grandmother - Breast Cancer Paternal Grandmother - Diabetes Maternal Aunt - Diabetes Maternal Aunt - PARKINSONS [OTHER] Maternal Aunt Social History Substance Use Topics - Smoking status: Never Smoker - Smokeless tobacco: Never Used - Alcohol use Yes Comment: socially, NOT WHILE Objective Physical Exam Constitutional: She is well-developed, well-nourished, and in no distress. HENT: Head: Normocephalic. Right Ear: Tympanic membrane, external ear and ear canal normal. Left Ear: Tympanic membrane, external ear and ear canal normal. Nose: Rhinorrhea present. Right sinus exhibits no maxillary sinus tenderness and no frontal sinus tenderness. Left sinus exhibits no maxillary sinus tenderness and no frontal sinus tenderness. Mouth/Throat: Posterior oropharyngeal erythema (PND) present. Eyes: Conjunctivae are normal. Neck: Normal range of motion. Neck supple. Cardiovascular: Normal rate, regular rhythm and normal heart sounds. Pulmonary/Chest: Effort normal. No respiratory distress. She has rhonchi (right lower posterior lobe). She has no rales. She exhibits no tenderness. Abdominal: Soft. She exhibits no distension. There is no tenderness. Lymphadenopathy: She has no cervical adenopathy. Skin: Skin is warm and dry. No rash noted. Nursing note and vitals reviewed. ASSESSMENT/PLAN: 1. Asthmatic bronchitis with acute exacerbation, unspecified asthma severity, unspecified whether persistent - ICD9: 493.92, ICD10: J45.901 - Amoxil - Bromfed - Exacerbation treatment of Prednisone burst- see orders - Avoidance of triggers recommended - Follow up in 3-5 days or sooner with PCP if symptoms are not improving or worsening. Prescription instructions reviewed with patient as applicable. Patient advised if symptoms do not improve or if symptoms worsen sooner, to contact their primary care physician. Potential red flag symptoms discussed with the patient. Reviewed appropriate action plan to take if red flag symptoms occur. Patient agreeable to treatment plan. Mayra Purcell APRN.JANELLE CNOV Observed: 09/13/2017 Status: COMPLETED Source: [place] 5:30 PM [facility] REPOSITORY Office Visit (WSTR) MADY TRACY ([id number]) 1985 F Date Time Provider Department 09/13/17 5:30 PM MAYRA PURCELL (VETERINARY MILK SPECIALIST) [place] During your visit today, we recorded the following information about you: Temperature Pulse Respiration Blood pressure 99.6 degrees 95/minute 18/minute 130/80 Weight 91.6 kg Mayra Purcell APRN.CNP 09/13/2017 6:06 PM Signed Subjective HPI Patient presents with: Cough and Chest Congestion x 5 days Hx of asthma and bronchitis. Mucinex otc with minimal relief. Review of Systems Constitutional: Positive for chills, fever (started today) and malaise/fatigue. HENT: Positive for congestion. Negative for ear pain and sore throat. Eyes: Negative for discharge and redness. Respiratory: Positive for cough (chest tightness). Negative for hemoptysis, sputum production, shortness of breath and wheezing. Gastrointestinal: Negative for abdominal pain, diarrhea, nausea and vomiting. Skin: Negative for rash. Neurological: Negative for headaches. PAST MEDICAL HISTORY Diagnosis Date - Anxiety disorder 08/14/2010 - Asthma 03/15/2010 - Breast disorder 2012 RIGHT BREAST MASS - Cyst January 2009 Near urethra that was drained. - Gestational hypertension w/o significant proteinuria in 3rd trimester 03/31/2013 - Other abnormal heart sounds Murmur PAST SURGICAL HISTORY Procedure Laterality Date - BREAST BIOPSY - LAPAROSCOPY, SURGICAL, APPENDECTOMY 5-3-12 - REMOVAL ADENOIDS,PRIMARY,ANDlt;12 Y/O 01/2007 Adenoidectomy - REMOVAL OF TONSILS,ANDlt;13 Y/O 01/2007 Tonsillectomy ALLERGIES Augmentin [Amoxicillin-Pot Clavulanate]; Celexa [Citalopram Hydrobromide]; Z-Pack [Azithromycin] MEDICATIONS PARoxetine (PAXIL) 10 mg tablet Take 1 tablet by mouth once daily. ethynodiol diacetate-ethinyl estradiol 1 mg-35 mcg (KELNOR , ,) 1-35 mg-mcg per tablet Take 1 tablet by mouth once daily. FAMILY HISTORY Problem Relation Age of Onset - Hypertension Mother - Hypertension Father - Diabetes Maternal Grandmother - Diabetes Maternal Grandfather - Heart Maternal Grandfather - Arthritis Paternal Grandmother - Breast Cancer Paternal Grandmother - Diabetes Maternal Aunt - Diabetes Maternal Aunt - PARKINSONS [OTHER] Maternal Aunt Social History Substance Use Topics - Smoking status: Never Smoker - Smokeless tobacco: Never Used - Alcohol use Yes Comment: socially, NOT WHILE Objective Physical Exam Constitutional: She is well-developed, well-nourished, and in no distress. HENT: Head: Normocephalic. Right Ear: Tympanic membrane, external ear and ear canal normal. Left Ear: Tympanic membrane, external ear and ear canal normal. Nose: Rhinorrhea present. Right sinus exhibits no maxillary sinus tenderness and no frontal sinus tenderness. Left sinus exhibits no maxillary sinus tenderness and no frontal sinus tenderness. Mouth/Throat: Posterior oropharyngeal erythema (PND) present. Eyes: Conjunctivae are normal. Neck: Normal range of motion. Neck supple. Cardiovascular: Normal rate, regular rhythm and normal heart sounds. Pulmonary/Chest: Effort normal. No respiratory distress. She has rhonchi (right lower posterior lobe). She has no rales. She exhibits no tenderness. Abdominal: Soft. She exhibits no distension. There is no tenderness. Lymphadenopathy: She has no cervical adenopathy. Skin: Skin is warm and dry. No rash noted. Nursing note and vitals reviewed. ASSESSMENT/PLAN: 1. Asthmatic bronchitis with acute exacerbation, unspecified asthma severity, unspecified whether persistent - ICD9: 493.92, ICD10: J45.901 - Amoxil - Bromfed - Exacerbation treatment of Prednisone burst- see orders - Avoidance of triggers recommended - Follow up in 3-5 days or sooner with PCP if symptoms are not improving or worsening. Prescription instructions reviewed with patient as applicable. Patient advised if symptoms do not improve or if symptoms worsen sooner, to contact their primary care physician. Potential red flag symptoms discussed with the patient. Reviewed appropriate action plan to take if red flag symptoms occur. Patient agreeable to treatment plan. Mayra Purcell, SHAQUILLE.ENGINE BOSS Referring Provider: SELF [[id number]] Allergies As of Date: 09/13/2017 Noted Allergy Reaction AUGMENTIN (AMOXICILLIN-POT CLAVUL*04/23/2005 Comments: diarrhea CELEXA (CITALOPRAM HYDROBROMIDE) 09/04/2010 14 - Other: See Comments Comments: decreased libido, anorgasmia Z-PACK (AZITHROMYCIN) 10/03/2006 11 - Vomiting Date Reviewed: 09/13/2017 Reviewed by: Mayra Chester (Washer Carcass) Eleuterio - Fully Assessed Reason for Visit: Cough [28] Chest Congestion [236] Primary Visit Diagnosis:Asthmatic bronchitis with acute exacerbation, unspecified asthma severity, unspecified whether persistent [J45.901] Order(s):amoxicillin (AMOXIL) 875 mg tabletTake 1 tablet by mouth twice daily for 10 days.Disp: 20 tabletRfl: 0 Fffuakozabvfuzw-Zjpbnqvsf-VQ (BROMFED DM) 2-30-10 mg/5 mL syrupTake 10 mL by mouth four times daily as needed for up to 7 days.Disp: 240 mLRfl: 0 predniSONE (DELTASONE) 20 mg tabletTake 2 tablets by mouth once daily for 5 days. Take daily with food.Disp: 4 tabletRfl: 0 albuterol HFA (PROAIR HFA) 90 mcg/actuation inhalerInhale 2 Puffs as instructed every 4 hours as needed.Disp: 1 InhalerRfl: 0 Prescriptions as of 09/13/2017 Sig: PAROXETINE 10 MG TABLET Take 1 tablet by mouth once d* ETHYNODIOL DIAC-ETH ESTRADIOL* Take 1 tablet by mouth once d* AMOXICILLIN 875 MG TABLET Take 1 tablet by mouth twice * BROMPHENIRAMINE-PSEUDOEPHEDRI* Take 10 mL by mouth four time* PREDNISONE 20 MG TABLET Take 2 tablets by mouth once * ALBUTEROL SULFATE HFA 90 MCG/* Inhale 2 Puffs as instructed * Problem List As Of Date 09/13/2017 Noted Resolved Acute pharyngitis [J02.9] INVALID FOR*01/12/2016 DYSMETABOLIC SYNDROME X [E88.81] INVALID FOR* Other acne [L70.8] INVALID FOR*01/12/2016 Scar condition and fibrosis of skin [L90.5] INVALID FOR*12/12/2012 Esophageal reflux [K21.9] INVALID FOR*12/12/2012 Contact dermatitis and other eczema, due to uns*INVALID FOR*12/12/2012 XEROSIS///SEBACEOUS GLAND DIS NEC [L73.8] INVALID FOR*12/12/2012 Other seborrheic keratosis [L82.1] INVALID FOR*12/12/2012 Dyshidrosis [L30.1] INVALID FOR*01/12/2016 Asthma [J45.909] INVALID FOR*10/03/2015 More... Anxiety disorder [F41.9] INVALID FOR*10/03/2015 More... Chronic appendicitis [K36] INVALID FOR*12/12/2012 History of breast biopsy [Z98.890] INVALID FOR*05/29/2013 More... Heart murmur [R01.1] INVALID FOR*10/03/2015 More... Patient requested diagnostic testing [Z01.89] INVALID FOR*12/12/2012 More... Immunization due [Z23] INVALID FOR*03/11/2013 More... Supervision of normal first [Z34.00] INVALID FOR*05/29/2013 Gestational hypertension w/o significant protei*INVALID FOR*05/29/2013 History of asthma [Z87.09] INVALID FOR* More... History of heart murmur in childhood [Z86.79] INVALID FOR* More... History of depression [Z86.59] INVALID FOR* More... History of gestational hypertension [Z87.59] INVALID FOR*06/28/2016 More... History of maternal third degree perineal lacer*INVALID FOR*06/28/2016 More... Prescriptions ordered this encounter Disp Refills Start End AMOXICILLIN 875 MG TABLET 20 t* 0 09/13/2017 09/23/2017 Route: ORAL Sig: Take 1 tablet by mouth twice daily for 10 days. [id number] 2* 240 * 0 09/13/2017 09/20/2017 Route: ORAL Sig: Take 10 mL by mouth four times daily as needed for up to 7 days. PREDNISONE 20 MG TABLET 4 ta* 0 09/13/2017 09/18/2017 Route: ORAL Sig: Take 2 tablets by mouth once daily for 5 days. Take daily with food. ALBUTEROL SULFATE HFA 90 MCG/ACTUATI* 1 In* 0 09/13/2017 Route: INHALATION Sig: Inhale 2 Puffs as instructed every 4 hours as needed. Medications Discontinued During This Encounter amoxicillin (AMOXIL) 875 mg tablet 20 t* 0 07/12/2014 09/13/2017 Route: ORAL Sig: Take 1 tablet by mouth twice daily for 10 days. Disc: Reason for discontinue is not on file. Disposition: Return if symptoms worsen or fail to improve. Follow-up and Disposition History Recorded Encounter Status:Closed by MAYRA PURCELL on 09/13/17 Observed: 07/28/2017 Status: F Source: [place] URINE CULTURE 9:05 PM [facility] REPOSITORY Sp. Request/Comment: - Specimen received in preservative Culture Result - <10,000 CFU/ml Normal urogenital mayte Performed By: #### URCUL #### [facility] [address], [place] [address] PROGRESS Observed: 07/28/2017 Status: COMPLETED Source: [place] 12:05 PM [facility] REPOSITORY HNO ID: [id number] Author: Arpita Constantino Service: (none) Author Type: Nurse Practitioner Type: Progress Notes Filed: 07/28/2017 12:24 PM Note Text: Subjective HPI Mady Tracy is a 31 year old female who presents with urinary frequency and pressure for the past 2 days. She wanted to have her urine checked since she was here having her son examined. She has not taken any medication at home for symptoms. Review of Systems Constitutional: Negative. Negative for chills and fever. Gastrointestinal: Negative. Negative for abdominal pain, diarrhea, nausea and vomiting. Genitourinary: Positive for frequency. Negative for dysuria and urgency. Musculoskeletal: Negative. Negative for myalgias. BP 126/76 Pulse 76 Temp 37.1 ?C (98.7 ?F) (Tympanic) Resp 18 Wt 89.8 kg (198 lb) LMP 07/22/2017 BMI 35.64 kg/m2 PAST MEDICAL HISTORY Diagnosis Date - Anxiety disorder 08/14/2010 - Asthma 03/15/2010 - Breast disorder 2012 RIGHT BREAST MASS - Cyst January 2009 Near urethra that was drained. - Gestational hypertension w/o significant proteinuria in 3rd trimester 03/31/2013 - Other abnormal heart sounds Murmur PAST SURGICAL HISTORY Procedure Laterality Date - BREAST BIOPSY - LAPAROSCOPY, SURGICAL, APPENDECTOMY 5--12 - REMOVAL ADENOIDS,PRIMARY,<12 Y/O 01/2007 Adenoidectomy - REMOVAL OF TONSILS,<12 Y/O 01/2007 Tonsillectomy ALLERGIES Augmentin [Amoxicillin-Pot Clavulanate]; Celexa [Citalopram Hydrobromide]; Z-Pack [Azithromycin] MEDICATIONS PARoxetine (PAXIL) 10 mg tablet Take 1 tablet by mouth once daily. ethynodiol diacetate-ethinyl estradiol 1 mg-35 mcg (KELNOR , ,) 1-35 mg-mcg per tablet Take 1 tablet by mouth once daily. FAMILY HISTORY Problem Relation Age of Onset - Hypertension Mother - Hypertension Father - Diabetes Maternal Grandmother - Diabetes Maternal Grandfather - Heart Maternal Grandfather - Arthritis Paternal Grandmother - Breast Cancer Paternal Grandmother - Diabetes Maternal Aunt - Diabetes Maternal Aunt - PARKINSONS [OTHER] Maternal Aunt Social History Substance Use Topics - Smoking status: Never Smoker - Smokeless tobacco: Never Used - Alcohol use Yes Comment: socially, NOT WHILE Objective Physical Exam Constitutional: She is well-developed, well-nourished, and in no distress. Cardiovascular: Normal rate. Pulmonary/Chest: Effort normal. Neurological: She is alert. Nursing note and vitals reviewed. ASSESSMENT/PLAN: 1. Dysuria - ICD9: 788.1, ICD10: R30.0 acute - UA negative in office. - Send urine for culture - Patient education for prevention given - URINE CULTURE - UA DIP B/O - Follow-up with your PCP in 3-5 days if symptoms have not improved or sooner if symptoms worsen - Discussed red flags and need for immediate medical evaluation if any occur. - Discussed supportive care treatment with fluids, rest and analgesia. - Discussed expected course of illness Arpita Praisler-Wood, ENGINE BOSS ALLERGIES ALLERGIES DATE TYPE / CODE NAME / CODE REACTION SEVERITY SOURCE 06/19/2018 Drug amoxicillin Nausea/Vom/Jeanie Unknown [place] Allergy/416 trihydrate/[id number] [facility] [id number]([facility] 07(RXNO) [facility] ED CT) Repository 06/19/2018 Drug potassium Nausea/Vom/Jeanie Unknown [place] Allergy/416 clavulanate/[id number] [facility] [id number](SNOM 809(RXNORM) [facility] ED CT) Repository 06/19/2018 Drug citalopram Abd Unknown [place] Allergy/416 hydrobromide/[id number] cramps/diarrhe Community 322036(SNOM 5107(RXNORM) [facility] ED CT) Repository 06/19/2018 Drug azithromycin/K43380 Nausea/Vom/Jeanie Unknown [place] Allergy/416 3635(RXNORM) [facility] 509450([facility] ED CT) Repository 09/04/2010 DRUG CITALOPRAM OTHER: SEE C [facility] INGREDI/419 HYDROBROMIDE [facility] [place] 513837(SNOM Repository ED CT) 10/03/2006 DRUG AZITHROMYCIN Vomiting [facility] INGREDI/419 [facility] [place] 286172(SNOM Repository ED CT) 04/23/2005 DRUG/182955 AMOXICILLIN-POT [facility] 003(SNOMED CLAVULANATE [facility] [place] CT) Repository ENCOUNTERS ENCOUNTERS ADMIT/DISCHARGE ACCOUNT ADMITTING ENCOUNTER LOCATION SOURCE NUMBER CLASS 06/28/2018/06/28/19 [id number] Ambulatory [address] [place] Repository 06/19/2018/06/19/19 [id number] Emergency Lam [place] [address] [place] [address] ing:ED Repository 05/23/2018/05/23/20 [id number] Ambulatory [address] [place] Repository 05/21/2018/05/22/20 [id number] Ambulatory [address] [place] Repository 11/04/2017/11/07/19 [id number] Ambulatory [address] [place] Repository 09/13/2017/09/17/19 [id number] Ambulatory [address] [place] Repository 07/28/2017/08/02/19 [id number] Ambulatory [address] Repository PAYERS PAYERS ENCOUNTER GUARANTOR PAYER SUBSCRIBER SOURCE 06/19/2018 MADY SHAIKH Primary MADY [place] [id number] N Insurance:MEDICAL BEERYDOB: [facility] [id number] [place] Number: Repository [address]Cee: [phone] [id number] [phone] () Date:[id number] [address], [place] [address]YV: 06/19/2018 Secondary NOT GIVENBRYON Fritz Insurance:SELF PAY [facility] Number: Effective Repository Date:2018-06-19
== END 2018-06-19 10:14 | disposition home or self-care (01) ==
LOC: ED 09:38
PROVIDERS: Emergency Provider Emergency Medicine; Family Provider Student in an Organized Health Care Education/Training Program; PCP Student in an Organized Health Care Education/Training Program
DX: S16.1XXA Strain of muscle, fascia and tendon at neck level, initial encounter (principal); V43.52XA Car driver injured in collision with other type car in traffic accident, initial encounter; Y93.9 Activity, unspecified; Y92.410 Unspecified street and highway as the place of occurrence of the external cause; Y99.9 Unspecified external cause status
CPT/HCPCS: 72040; 99282

== ENCOUNTER 2024-01-26 00:02 | Outpatient (CLI) | payer OTHER, SELFPAY ==
[2024-01-26 00:28] VITALS: BP 145/73; PULSE 96
[2024-01-26 00:30] VITALS: RESP 16; TEMP 36.9
[2024-01-26 00:40] VITALS: BP 150/75; PULSE 93
[2024-01-26 00:49] VITALS: BMI 49.2
[2024-01-26 01:39] VITALS: BP 133/67; PULSE 97
[2024-01-26 01:42] LABS: Hematocrit 32.1 % (37-47); Hemoglobin 10.2 g/dL (12.0-15.0); Mean Corp Hgb Conc 31.8 g/dL (32-36); Mean Corpuscular Volume 78.7 fL (81-99); Mean Platelet Vol. 10.8 fl (6.2-12.0); Platelet Count 300 K/mm3 (150-450); RBC Distribution Width CV 15.5 % (11.6-14.6); RBC Distribution Width SD 44.3 fl (35.1-43.9); Red Blood Count 4.08 M/mm3 (4.2-5.4); White Blood Count 14.7 K/mm3 (4.4-11.0)
[2024-01-26 02:15] LABS: AST(SGOT) 16 U/L (15-37); Alanine Aminotransfer ALT/SGPT 17 U/L (13-56); Creatinine, Serum 0.52 mg/dL (0.55-1.02); EST Glomerular Filtration Rate 140 mL/min (>60); Est Glom Filt Rate - Afr Amer 169 mL/min (>60); Estimated Creatinine Clearance 184.53 ml/min; Uric Acid 4.5 mg/dL (2.6-6.0)
[2024-01-26 02:31] VITALS: BP 125/60; PULSE 86
[2024-01-26 03:23] LABS: Protein:Creat Ratio 262 mg/g CRE (0-200)
[2024-01-26 03:24] VITALS: BP 140/67; PULSE 92
--- NOTE | 2024-01-26 09:06 | OB.TRI.NOTE ---
HPI - General General Date of Admission: 01/26/24 Date of Service: 01/26/24 Chief Complaint: ELevated BP reading at home HPI Narrative LEANDRA HANSON, is a 38 F who presents elevated BP reading at home. No LIVINGST[place] no vision changes. Hx of GHTN on labetalol now. Maternal Data Information Final MONA: 02/14/24 Gestational age: 37+2 PFSH PFSH Home Medications ?Medication ?Instructions ?Recorded ?Last Taken ?Type vits,calcium no.78-iron 1 tab PO DAILY 03/27/13 05/20/16 History fumarate-folic acid 29 mg-1 mg one tablet (Prenatabs FA) famotidine 20 mg tablet (Pepcid) 20 mg PO DAILY PRN Heartburn 05/17/16 05/20/16 History one ferrous sulfate 325 mg (65 mg 325 mg PO DAILY@0800 05/17/16 05/20/16 History iron) tablet one ibuprofen 600 mg tablet 600 mg PO Q6H PRN Pain ##60 05/23/16 Unknown Rx cyclobenzaprine 10 mg tablet 10 mg PO TID PRN Muscle Spasm #20 06/19/18 Unknown Rx tabs naproxen 500 mg tablet 500 mg PO BID PRN #20 tabs 06/19/18 Unknown Rx Allergy/AdvReac Type Severity Reaction Status Date / Time citalopram hydrobromide Allergy Abd Verified 06/19/18 09:00 (From Celexa) cramps/diarrhea amoxicillin trihydrate (From AdvReac Nausea/Vom/ Verified 06/19/18 09:00 Augmentin) Diarrhea azithromycin (From Zithromax AdvReac Nausea/Vom/ Verified 06/19/18 09:00 Z-Delfin) Diarrhea potassium clavulanate (From AdvReac Nausea/Vom/ Verified 06/19/18 09:00 Augmentin) Diarrhea Social History Smoking Status: Unknown if ever smoked History 3 Elective abortions Hx Para 2 Spontaneous abortions Hx # Term Pregnancies Ectopic pregnancies Hx # Pregnancies Multiple births # of living children NST FHR Rate Baby A Baseline: 140 Variability:: Moderate Accelerations:: 15 x 15 Decelerations:: None NST Reactive:: Yes FHR Category:: Category I Uterine Activity:: irregular Assessment & Plan (1) Chronic hypertension affecting : (2) 37 weeks gestation of : PLAN: Plan PIH labs with in normal limits. IOL scheduled for Saturday
== END 2024-01-26 04:00 | disposition home or self-care (01) ==
LOC: WPOUT 00:11 → WP 00:11
PROVIDERS: PCP Student in an Organized Health Care Education/Training Program; Referring Provider Obstetrics & Gynecology; Visit Provider Obstetrics & Gynecology
DX: O16.3 Unspecified maternal hypertension, third trimester (principal); Z3A.37 37 weeks gestation of pregnancy
CPT/HCPCS: 36415; 59025; 59050; 82565; 82570; 84156; 84450; 84460; 84550; 85027; 99221; G0378

== ENCOUNTER 2024-01-27 07:18 | Inpatient (IN) | payer OTHER, SELFPAY ==
[2024-01-27] VITALS (31 sets, daily range): BP systolic 123–171; BP diastolic 58–83; PULSE 72–113; RESP 15–16; TEMP 36.2–37.4; O2SAT 98–100; BMI 48.2
[2024-01-27] MEDS: Lactated Ringers 1,000 ML 50 ML IV (08:12)
[2024-01-27] MEDS: Oxytocin 15 Units/NS 250ml 15 UNITS/250 ML IV.SOLN 2 UNITS IV (08:12)
[2024-01-27] MEDS: 0.9% Normal Saline Single 100 ML IV.SOLN. INTRA-UTER (08:25)
--- NOTE | 2024-01-27 08:37 | HP.PCM.OB_ITS ---
HPI - General General Date of Admission: 01/27/24 HPI Narrative LEANDRA HANSON, is a 38 F who presents for induction of labor due to Chronic HTN. Maternal Data Information MONA Calculator 2 Estimated Delivery Date Method Current WG Current Estimate 02/14/24 Manual 37w 3d PFSH PFS Medical History (Updated 01/27/24 @ 08:41 by Romi Ariza CNM) Breast mass, right Sleep apnea Obesity Asthma Dysmetabolic syndrome Advanced maternal age (AMA) in Thyroid disorder depression Anxiety Chronic hypertension Home Medications ?Medication ?Instructions ?Recorded ?Last Taken ?Type vits,calcium no.78-iron 1 tab PO DAILY 03/27/13 01/26/24 08:00 History fumarate-folic acid 29 mg-1 mg tablet (Prenatabs FA) amoxicillin 875 mg tablet 875 mg PO BID ear infection 01/27/24 01/27/24 06:00 History labetalol 100 mg tablet 100 mg PO BID GHTN 01/27/24 01/27/24 06:00 History levothyroxine 75 mcg tablet 75 mcg PO DAILY hypothyroid 01/27/24 01/26/24 08:00 History omeprazole 20 mg capsule,delayed 20 mg PO BID PRN PRN heartburn 01/27/24 01/26/24 10:00 History release Allergy/AdvReac Type Severity Reaction Status Date / Time No Known Allergies Allergy Verified 01/27/24 08:13 Surgical History (Updated 01/27/24 @ 08:35 by Fabricio Castle) History of surgery Social History Smoking Status: Never smoker History 3 Elective abortions Hx Para 2 Spontaneous abortions Hx # Term Pregnancies Ectopic pregnancies Hx # Pregnancies Multiple births # of living children NST FHR Rate Baby A Baseline: 125 Variability:: Moderate Accelerations:: 15 x 15 Decelerations:: Variable FHR Category:: Category II Uterine Activity:: Irregular ROS Constitutional Constitutional: Reports systems reviewed and no addt'l complaints, except as documented; Denies headache(s) Eyes Eyes: Denies acute decrease in peripheral vision, blurry vision or change in vision ENT HEENT: Reports systems reviewed and no addt'l complaints, except as documented Cardiovascular Cardiovascular: Denies chest pain or dizziness Respiratory/Chest Respiratory/Chest: Denies cough, dyspnea, dyspnea on exertion, shortness of breath at rest or shortness of breath with exertion Gastrointestinal Gastrointestinal: Denies abdominal pain, diarrhea, nausea or vomiting Genitourinary Genitourinary: Denies abdominal discomfort Musculoskeletal Musculoskeletal: Denies limited range of motion Integumentary Integumentary: Reports systems reviewed and no addt'l complaints, except as documented Neurologic Neurologic: Reports systems reviewed and no addt'l complaints, except as documented Psychiatric Psychiatric: Reports systems reviewed and no addt'l complaints, except as documented Endocrine Endocrinology: Reports systems reviewed and no addt'l complaints, except as documented Hematologic/Lymphatic Hematologic/Lymphatic: Reports systems reviewed and no addt'l complaints, except as documented Allergic/Immunologic Allergic/Immunologic: Reports systems reviewed and no addt'l complaints, except as documented Vital Signs Vital Signs Vital Signs: 01/27/24 07:30 01/27/24 07:30 01/27/24 07:30 Temperature 97.5 F L Temperature Source Temporal Pulse Rate Respiratory Rate 15 Blood Pressure BP Systolic BP Diastolic 01/27/24 07:32 01/27/24 07:32 Temperature Temperature Source Pulse Rate 96 Respiratory Rate Blood Pressure 132/72 H BP Systolic 132 BP Diastolic 72 Weight Weight: 264 lb Body Mass Index (BMI) 48.2 Physical Exam Const alert and oriented x3 General Appearance: cooperative Orientation / Consciousness: awake, oriented to person, oriented to place and oriented to time Exam Limitations: no limitations HEENT normocephalic Head and Scalp: normal to inspection, normocephalic and atraumatic Face and Sinus: normal facial exam Eyes General Eye: normal appearance of both eyes Neck full ROM Chest Chest: symmetrical chest wall rise Resp normal respiratory effort and normal air movement Auscultation: clear to auscultation bilaterally Cardio regular rate, regular rhythm, S1 normal heart sound, S2 normal heart sound, no murmurs, no rub, no gallops and no clicks GI normal to inspection, nondistended, normoactive bowel sounds and non-tender appearance of the vagina normal Narrative: vázquez inserted over stylus into cervical os. 30ml NS instilled. tolerated well. 1cm/50%/-3 Bladder / Kidney Exam: no CVA tenderness Back/Spine normal ROM Extremity normal to inspection and full ROM Skin no rashes or lesions noted Neuro oriented x3, CN's II-XII intact bilaterally and moves all extremities Sensorium / Orientation: awake, alert and oriented to person Motor Exam: clonus absent Deep Tendon Reflexes: Rt Patellar (L4): 2+ and Lt Patellar (L4): 2+ Labs Labs Labs: Blood Type O POSITIVE Antibody Screen NEGATIVE Hct 32.1 % (37-47) L Hgb 10.2 g/dL (12.0-15.0) L Rhogam given: No HIV negative RPR negative HepC negative HBsAG negative Rubella Immune GBS negative 1hr GCT negative GC/CT negative Assessment & Plan (1) 37 weeks gestation of : (2) Chronic hypertension affecting : (3) Encounter for induction of labor: PLAN: Plan 1) Admit to labor and delivery 2) Routine labs and preeclampsia labs 3) Pitocin and vázquez for induction 4) GBS negative 5) management of patient. Collaborative physician and notified of above patient status, assessment and plan. 6) Continuous EFM 7) Planning epidural for pain management
[2024-01-27 09:15] LABS: Absolute Lymphocyte Count 1.78 X10^3/uL (0.83-4.51); Absolute Neutrophil Count 9.8 X10^3/uL (2.0-7.7); Basophil# 0.02 X10^3/uL; Basophil% 0.2 % (0-1); Eosinophil# 0.13 X10^3/uL; Hemoglobin 10.6 g/dL (12.0-15.0); Lymphocyte # 1.78 X10^3/ul (0.83-4.51); Lymphocyte % 14.1 % (19-41); Mean Corp Hgb Conc 31.2 g/dL (32-36); Mean Corpuscular Hgb 24.9 pg (27.0-32.0); Mean Corpuscular Volume 79.8 fL (81-99); Monocyte# 0.81 X10^3/uL; Monocyte% 6.4 % (0-10); NRBC Flagged by Analyzer 0 % (0-5); Neutrophil # 9.83 X10^3/uL (2.7-7.7); Neutrophil % 77.6 % (47-70); Platelet Count 299 K/mm3 (150-450); RBC Distribution Width CV 15.4 % (11.6-14.6); RBC Distribution Width SD 44.6 fl (35.1-43.9); Red Blood Count 4.26 M/mm3 (4.2-5.4); White Blood Count 12.7 K/mm3 (4.4-11.0)
[2024-01-27 09:33] LABS: Protein, Urine (Random) 30.7 mg/dL (<11.9); Protein:Creat Ratio 326 mg/g CRE (0-200)
[2024-01-27 09:46] LABS: AST(SGOT) 22 U/L (15-37); Alanine Aminotransfer ALT/SGPT 21 U/L (13-56); Creatinine, Serum 0.57 mg/dL (0.55-1.02); EST Glomerular Filtration Rate 126 mL/min (>60); Est Glom Filt Rate - Afr Amer 152 mL/min (>60); Estimated Creatinine Clearance 166.31 ml/min; Uric Acid 4.5 mg/dL (2.6-6.0)
[2024-01-27 10:06] LABS: Syphilis Antibodies Non-reactive
[2024-01-27] MEDS: Lactated Ringers 1,000 ML 999 ML IV (11:11)
[2024-01-27] MEDS: fentaNYL-bupivacaine (epidural) 100 ML BAG EPIDURAL ×3 (13:05→22:16)
--- NOTE | 2024-01-27 14:27 | PN.OBGYN_ITS ---
Subjective Subjective Resting in bed with epidural, comfortable. Objective Data Objective Data Vital Signs: Vital Signs Temp Pulse Resp BP Pulse Ox 98.3 F 86 15 133/60 H 99 01/27/24 13:09 01/27/24 13:29 01/27/24 13:29 01/27/24 13:29 01/27/24 13:29 Weight: 264 lb Body Mass Index (BMI) 48.2 Intake & Output: Intake and Output for Last 24 Hours 01/25/24 01/26/24 01/27/24 23:59 23:59 23:59 Intake Total 1019.40 / 1019.40 Output Total 400 / 400 Balance 619.40 / 619.40 Lab / Micro Data 01/27/24 08:00 01/27/24 08:00 Labs: Laboratory Results - last 24 hr 01/27/24 08:00: WBC 12.7 H, RBC 4.26, Hgb 10.6 L, Hct 34.0 L, MCV 79.8 L, MCH 24.9 L, MCHC 31.2 L, RDW Std Deviation 44.6 H, RDW Coeff of Serafin 15.4 H, Plt Count 299, MPV 11.0, Immature Gran % (Auto) 0.700, Neut % (Auto) 77.6 H, Lymph % (Auto) 14.1 L, Rutherford % (Auto) 6.4, Eos % (Auto) 1.0, Baso % (Auto) 0.2, Absolute Neuts (auto) 9.8 H, Absolute Lymphs (auto) 1.78, Nucleated RBC % 0, Creatinine 0.57, Estim Creat Clear Calc 166.31, Est GFR (MDRD) Af Amer 152, Est GFR (MDRD) Non-Af 126, Uric Acid 4.5, AST 22, ALT 21, U Random Total Protein 30.7 H, Urine Creatinine 94.20, Protein/Creatinin Ratio 326 H, Syphilis Total Ab Non-reactive, Blood Type O POSITIVE, Antibody Screen NEGATIVE Physical Exam Manual OB Exam: estimated gestational size, presentation cephalic (confirmed by bedside US), dilated 4.5 cm, effaced 50 and station -2 Amniotic Fluid: clear amniotic fluid NST FHR Rate Baby A Baseline: 145 Variability:: Moderate Accelerations:: 15 x 15 Decelerations:: Variable FHR Category:: Category II Uterine Activity:: Every 2 minutes Assessment & Plan (1) Encounter for induction of labor: (2) Obesity: (3) 37 weeks gestation of : (4) Chronic hypertension affecting : (5) Advanced maternal age (AMA) in : PLAN: Plan 1) Limited bedside US confirms cephalic presentation 2) AROM clear fluid 3) IUPC placed due to difficulty tracing contractions 4) Epidural for pain management 5) Continue with active management and pitocin per protocol 6) collaborative physician and notified of patient status, above assessment and plan
[2024-01-27] MEDS: Lactated Ringers 1,000 ML 200 ML IV ×2 (17:53→22:55)
[2024-01-27] MEDS: Ondansetron 4 MG/2 ML Vial IV (18:45)
[2024-01-27] MEDS: Amoxicillin 200MG/5 ML Susp PO.SYRINGE 875 MG PO (22:06)
[2024-01-27] MEDS: Labetalol 100 MG Tablet PO (22:06)
[2024-01-27] MEDS: LACTATED RINGERS 500 ML 999 ML IV (23:00)
[2024-01-28] VITALS (13 sets, daily range): BP systolic 127–152; BP diastolic 60–86; PULSE 79–96; RESP 16–18; TEMP 36.2–36.6; O2SAT 98–99
[2024-01-28] MEDS: Oxytocin 15 Units/NS 250ml 15 UNITS/250 ML IV.SOLN 334 UNITS IV (00:25)
--- NOTE | 2024-01-28 00:45 | EX.PCM.OBRPT ---
Assessment & Plan (1) (normal spontaneous vaginal delivery): (2) First degree perineal laceration: (3) Anxiety: (4) depression: COMMENT: prozac after last 2 pregnancies (5) Thyroid disorder: COMMENT: high end of normal (6) Sleep apnea: (7) Asthma: (8) Obesity: (9) Chronic hypertension with superimposed preeclampsia: PLAN: PC ratio elevated Maternal Data Information MONA Calculator Estimated Delivery Date Method Current WG Current Estimate 02/14/24 Manual 37w 4d Vaginal Delivery Maternal Presentation Maternal Presentation: Medically Indicated Induction (Chronic HTN) Type of Induction: Pitocin and Patel Bulb Operative Information Date of Procedure: 01/28/24 Pre-Operative Diagnosis: Induction of labor for Chronic hypertension with superimposed preeclampsia Post-Operative Diagnosis: , first degree perineal laceration Surgery / Procedure Performed: Spontaneous Vaginal Delivery Type of Anesthesia: Epidural Time of Delivery: 00:21 Findings Description of Procedure: Progressed to complete with urge to push. Epidural for pain management. of viable female infant over first degree perineal laceration. APGARS 9,9 respectively. head delivered with body immediately forthcoming. Placed on maternal abdomen, strong cry. Mouth and nares wiped for secretions. Pitocin started for active 3rd stage management. Cord doubly clamped and cut by FOB after pulsations ceased, delayed cord clamping. Placenta delivered intact via le, 3 vessel cord intact. Perineum inspected and revealed 1st degree perineal laceration. Repaired with 3.0 vicryl rapide and epidural Fundus firm and hemostasis achieved. EBL 200ml. Mom and baby stable, planning to bottle feed. Family bonding well. notified of delivery. Presentation: Vertex and DOMO Amniotic Membrane Rupture Type: Artificial Amniotic Fluid Description: Clear Placental Delivery Description: Spontaneous Placenta Disposition: [facility] Cord Vessel Description: 3 Vessels Cord Entanglement: None Infant A Gender: Female (1 minute): 9 (5 minute): 9 Delayed Cord Clamping: Yes Post Vaginal Delivery Medications Given After Delivery: IV Pitocin Episiotomy Description: None Laceration: Perineal Extension/lac and 1st degree Complication Complications: None
[2024-01-28] MEDS: Oxytocin 15 Units/NS 250ml 15 UNITS/250 ML IV.SOLN 83 UNITS IV (01:10)
[2024-01-28] MEDS: Acetaminophen 500 MG Tablet 1000 MG PO ×4 (03:07→21:41)
[2024-01-28] MEDS: Levothyroxine 75 MCG Tablet PO (06:17)
[2024-01-28] MEDS: Labetalol 100 MG Tablet PO ×2 (10:09→21:42)
[2024-01-28] MEDS: Amoxicillin 200MG/5 ML Susp PO.SYRINGE 875 MG PO ×2 (10:09→21:42)
[2024-01-28] MEDS: Ibuprofen 600 MG Tablet PO ×2 (11:26→19:53)
[2024-01-29 02:14] VITALS: BP 118/63; PULSE 73; RESP 16; TEMP 36.1
[2024-01-29] MEDS: Levothyroxine 75 MCG Tablet PO (06:04)
[2024-01-29] MEDS: Acetaminophen 500 MG Tablet 1000 MG PO (06:04)
[2024-01-29 07:48] VITALS: BP 146/84; PULSE 88; RESP 17; TEMP 36.6; O2SAT 98
--- NOTE | 2024-01-29 07:50 | PCM.PN.OB ---
Subjective Subjective Feels good. No [place]IVING[place]. Bottle feeding. Ambulating and voiding without difficulty. Has double ear infection. Treated as outpt. Follow up scheduled. Objective Data Objective Data Vital Signs: Vital Signs Temp Pulse Resp BP Pulse Ox O2 Del Method 97.8 F 88 17 146/84 H 98 Room Air 01/29/24 07:48 01/29/24 07:48 01/29/24 07:48 01/29/24 07:48 01/29/24 07:48 01/29/24 07:48 Oxygen Delivery Method Room Air Weight: 119.748 kg Body Mass Index (BMI) 48.2 Intake & Output: Intake and Output for Last 24 Hours 01/27/24 01/28/24 01/29/24 23:59 23:59 23:59 Intake Total 3237.40 / 3237.40 1358.31 / 1358.31 Output Total 2200 / 2200 825 / 825 Balance 1037.40 / 1037.40 533.31 / 533.31 Lab / Micro Data 01/27/24 08:00 01/27/24 08:00 ROS Constitutional Constitutional: Denies fatigue, fever(s) or malaise Eyes Eyes: Denies change in vision ENT HEENT: Denies dizziness or headache(s) Cardiovascular Cardiovascular: Denies chest pain, dyspnea or lightheadedness Respiratory/Chest Respiratory/Chest: Denies cough or dyspnea Gastrointestinal Gastrointestinal: Denies change in bowel habits Genitourinary Genitourinary: Denies burning urination or genital lesions Integumentary Integumentary: Denies rash Neurologic Neurologic: Denies confusion, dizziness, headache(s), numbness or weakness Physical Exam Const alert and no apparent distress Narrative: Fundus firm, below umbilicus. Assessment & Plan (1) (normal spontaneous vaginal delivery): (2) Chronic hypertension with superimposed preeclampsia: PLAN: Continue labetalol. Needs in office follow up 72 hours. Has cuff at home (3) Advanced maternal age (AMA) in :
--- NOTE | 2024-01-29 07:53 | PCM.DC.SUM ---
Providers Date of Admission: 01/27/24 Date of Discharge: 01/29/24 Primary Care Physician: Dr. Beni Saldaña DO Reason For Visit: VAGINAL DELIVERY Diagnosis Discharge Diagnosis (1) (normal spontaneous vaginal delivery): Status: Acute Code(s): O80 - Encounter for full-term uncomplicated delivery (2) Chronic hypertension with superimposed preeclampsia: Status: Acute Code(s): O11.9 - Pre-existing hypertension with pre-eclampsia, unspecified trimester Plan: Continue labetalol. Needs in office follow up 72 hours. Has cuff at home (3) Advanced maternal age (AMA) in : Status: Acute Medications at Discharge Home Medications vits,calcium no.78-iron fumarate-folic acid 29 mg-1 mg tablet (Prenatabs FA) 1 tab PO DAILY 03/27/13 amoxicillin 875 mg tablet 875 mg PO BID ear infection 01/27/24 labetalol 100 mg tablet 100 mg PO BID GHTN 01/27/24 levothyroxine 75 mcg tablet 75 mcg PO DAILY hypothyroid 01/27/24 omeprazole 20 mg capsule,delayed release 20 mg PO BID PRN PRN heartburn 01/27/24 Hospital Course Operations None Procedures None Summary of Care Provided Minutes Spent on Discharge: 22 Hospital Course: IOL with HTN. without complication. uncomplicated. Continued on labetalol. Bottle feeding Physical Exam Const alert and no apparent distress Narrative: Fundus firm, below umbilicus. Weight / BMI Weight Weight: 119.748 kg Body Mass Index (BMI) 48.2 ABG / Lab / Microbiology Data 01/27/24 08:00 01/27/24 08:00 D/C Instructions May resume sexual activity in: 6 weeks Please Follow Up With: Elisha Franco MD When: Follow up with our office in 1-2 and 6 weeks or as needed. [phone] Meaningful Use Info Meaningful Use Meaningful Use Diagnoses (Choose all that apply): None applicable Ischemic Stroke Statin Dosing Therapy Reference: STATIN DOSE THERAPY REFERENCE: * Patients > 75 years receive moderate or high dose statin therapy. * Patients 75 years or YOUNGER should receive HIGH intensity statin dose unless contraindicated. You will be required to document reason for non-treatment if statin daily dose does not meet guidelines. HIGH DOSE STATIN THERAPY DAILY Atorvastatin > than or = to 40 mg Rosuvastatin > than or = to 20 mg Amlodipine + Atorvastatin > than or = to 2.5/40 mg Ezetimibe + Simvastatin 10/80 mg Simvastatin 80mg Discharge Plan Admission Admit Date/Time: 01/27/24 07:18 Primary Reason for Your Visit: Induction Attending Provider: Romi Ariza Primary Care Provider: Beni Saldaña Discharge Orders/Prescriptions Prescriptions: Continued Prenatabs FA 1 TABLET tablet 1 tab PO DAILY levothyroxine 75 mcg tablet 75 mcg PO DAILY amoxicillin 875 mg tablet 875 mg PO BID labetalol 100 mg tablet 100 mg PO BID omeprazole 20 mg capsule,delayed release(DR/EC) 20 mg PO BID PRN PRN (Reason: heartburn) Referrals / Follow Up: Beni Saldaña DO [Primary Care Provider] - Disposition Disposition (needs filled in before D/C Order can be placed): Home, Self Care
[2024-01-29] MEDS: Ibuprofen 600 MG Tablet PO (09:21)
[2024-01-29] MEDS: Labetalol 100 MG Tablet PO (09:22)
== END 2024-01-29 10:40 | disposition home or self-care (01) | DRG 806 ==
PROVIDERS: Admitting Provider Advanced Practice Midwife; PCP Student in an Organized Health Care Education/Training Program; Referring Provider Advanced Practice Midwife; Visit Provider Advanced Practice Midwife
DX: O11.4 Pre-existing hypertension with pre-eclampsia, complicating childbirth (principal); Z37.0 Single live birth; O99.354 Diseases of the nervous system complicating childbirth; J45.909 Unspecified asthma, uncomplicated; O99.214 Obesity complicating childbirth; G47.30 Sleep apnea, unspecified; E07.9 Disorder of thyroid, unspecified; F41.9 Anxiety disorder, unspecified; O99.344 Other mental disorders complicating childbirth; O99.52 Diseases of the respiratory system complicating childbirth; O99.284 Endocrine, nutritional and metabolic diseases complicating childbirth; O70.0 First degree perineal laceration during delivery; Z3A.37 37 weeks gestation of pregnancy
CPT/HCPCS: 59025; 59050; 76815; 82565; 82570; 84156; 84450; 84460; 84550; 85025; 86780; 86850; 86900; 86901; 99221; J7120; G0378; J2405